=== PATIENT | female | born 1990 | race African-American/Black ===

== ENCOUNTER → 2024-05-22 | Outpatient (REF) | payer OTHER ==
[~2024-05-22] MED LIST: IOPAMIDOL 370 MG/ML 100 ML INFUS..BTL INJ ONE
== END ==
LOC: DX 13:14
PROVIDERS: ATTEND Obstetrics & Gynecology
DX: N97.9 Female infertility, unspecified (principal)
CPT/HCPCS: 74740; 81025; Q9967